=== PATIENT | male | born 1960 | race Caucasian/White ===

== ENCOUNTER 2023-08-18 11:37 | Observation (INO) ==
[2023-08-18 15:48] LABS: ABS Basophils 0.1 10^3/uL (0.0-0.1); ABS Lymphocytes 0.8 10^3/uL (1.0-4.8); ABS Monocytes 0.9 10^3/uL (0.0-1.1); ABS Neutrophils 8.5 10^3/uL (1.5-7.6); Eosinophil % 0.2 %; Hematocrit 36.5 % (38-53); Hemoglobin 12.5 g/dL (13.2-16.3); Lymphocyte % 7.6 %; Mean Corpuscular Hemoglobin 30.8 pg (27-33); Mean Corpuscular Hgb Conc 34.3 g/dL (31-36); Mean Corpuscular Volume 89.9 fL (80-97); Mean Platelet Volume 7.1 fL (7.5-11.2); Platelet Count 221 10^3/uL (150-450); Red Blood Count 4.06 10^6/uL (4.06-5.63); Red Cell Distribution Width 13.4 % (12-17); White Blood Count 10.2 10^3/uL (3.6-10.2)
[2023-08-18] MEDS: Lidocaine 4% GEL 10 GM TUBE TOPICAL ONE (15:59)
[2023-08-18 16:20] LABS: Albumin 4.1 g/dL (3.2-5.2); Albumin/Globulin Ratio 2.1 (1-3); C Reactive Protein 49.81 mg/L (<8.01); Calcium 8.8 mg/dL (8.6-10.3); Creatinine, Serum 7.12 mg/dL (0.67-1.17); Total Bilirubin 0.8 mg/dL (0.2-1.0); Total Protein 6.1 g/dL (6.4-8.9)
[2023-08-18 17:56] LABS: Urine Appearance Clear; Urine Bilirubin Negative (Negative); Urine Blood 2+ (Negative); Urine Color Light-Yellow; Urine Glucose Negative (Negative); Urine Ketones Negative (Negative); Urine Nitrite Negative (Negative); Urine Protein Negative (Negative); Urine Specific Gravity 1.014 (1.002-1.030); Urine Urobilinogen Negative (Negative); Urine pH 5.5 (5.0-8.0)
[2023-08-18 17:59] LABS: Urine Bacteria Absent /HPF (Absent); Urine Red Blood Cell 2+(6-10/hpf) /HPF (0-Trace); Urine White Blood Cell Trace(0-5/hpf) /HPF (0-Trace)
[2023-08-18] MEDS ORDERED: Enoxaparin 40 MG/0.4 ML SYR SUBCUT SCH (19:00)
[2023-08-18] MEDS: Heparin 5000 UNITS/ML 1 mL VIAL SUBCUT SCH (20:29)
[2023-08-18] MEDS: NS 0.9% 1000 ml BAG 1,000 ML IV SCH (20:29)
[2023-08-19 00:28] LABS: Calcium 8.7 mg/dL (8.6-10.3); Creatinine, Serum 3.67 mg/dL (0.67-1.17); Magnesium 2.5 mg/dL (1.9-2.7); Potassium 4.6 mmol/L (3.5-5.0); eGFR CKD-EPI 17.8 (>60)
[2023-08-19 06:21] LABS: Calcium 8.6 mg/dL (8.6-10.3); Creatinine, Serum 2.15 mg/dL (0.67-1.17); Magnesium 2.4 mg/dL (1.9-2.7); Potassium 4.6 mmol/L (3.5-5.0); eGFR CKD-EPI 33.8 (>60)
[2023-08-19 10:14] VITALS: BP 132/63
== END 2023-08-19 16:17 | disposition home or self-care (01) ==
LOC: EDHOLD 11:37 → ED 11:37 → SUATTDRO 18:30 → MEDTELE 08-19 00:12
PROVIDERS: ADMIT Family Medicine; ATTEND Internal Medicine